=== PATIENT | female | born 1965 ===

== ENCOUNTER 2021-03-06 06:07 | Day surgery (SDC) | payer OTHER ==
[~2021-03-06 06:07] MED LIST: COZAAR100 MG PO; CRESTOR40 MG PO; HUMALOG100 UNIT/1; LANTUS; SYNTHROID100 MCG PO
== END 2021-03-06 14:53 | disposition home or self-care (01) ==
LOC: CIR.AMB 06:07
PROVIDERS: ATTEND Obstetrics & Gynecology
DX: N84.0 Polyp of corpus uteri (principal); D25.0 Submucous leiomyoma of uterus; Z20.822 Contact with and (suspected) exposure to COVID-19

== ENCOUNTER 2024-08-03 06:22 | Day surgery (SDC) | payer OTHER ==
[~2024-08-03 06:22] MED LIST changes: +TOUJEO SOL300 UNIT/1; +TRULICITY3 MG/0.5 M
[2024-08-03] MEDS ORDERED: POVIDONE-IODINE 118 ML BOTT TOP ONE (08:30)
[2024-08-03] MEDS ORDERED: CEFAZOLIN SODIUM 1,000 MG VIAL IV SCH (08:30)
== END 2024-08-03 12:35 | disposition home or self-care (01) ==
LOC: CIR.AMB 06:22
PROVIDERS: ATTEND Obstetrics & Gynecology
DX: N85.02 Endometrial intraepithelial neoplasia [EIN] (principal)

== ENCOUNTER 2024-09-05 08:55 | Inpatient (IN) | payer OTHER ==
[~2024-09-05] VITALS: Ht 157.5 cm; Wt 94.8 kg
[2024-09-05] MEDS ORDERED: CRESTOR40 MG (09:33)
[2024-09-05] MEDS ORDERED: TOUJEO (09:33)
[2024-09-05 10:21] LABS: RH POSITIVE
[2024-09-14] MEDS ORDERED: TOUJEO MAX300 UNIT/1 (08:02)
[2024-09-14] MEDS ORDERED: TRULICITY4.5 MG/0.5 (08:03)
[2024-09-14] MEDS ORDERED: CHLORTHALIDONE25 MG (08:03)
[2024-09-14] MEDS ORDERED: POVIDONE-IODINE 118 ML BOTT TOP ONE (09:15)
[2024-09-14] MEDS ORDERED: BUPIVACAINE HCL 30 ML VIAL IJ ONE (09:15)
[2024-09-14] MEDS ORDERED: CEFAZOLIN SODIUM 1,000 MG VIAL IV ONE (09:15)
[2024-09-14] MEDS ORDERED: SURGIFLO APPLICATOR 1 EACH APPL TOP ONE (10:15)
[2024-09-14] MEDS ORDERED: HEMOSTATIC MATRIX WITH THROMBIN KIT TOP ONE (10:15)
[2024-09-14] MEDS ORDERED: MORPHINE SULFATE 4 MG/ML VIAL IV ONE (11:55)
[2024-09-14] MEDS ORDERED: RINGERS SOLUTION,LACTATED 1,000 ML IV SCH (12:00)
[2024-09-14] MEDS ORDERED: MORPHINE SULFATE 2 MG/ML CARTRIDGE IV PRN (12:00)
[2024-09-14] MEDS ORDERED: ONDANSETRON HCL 2 MG/ML VIAL IV PRN (12:00)
[2024-09-14] MEDS ORDERED: INSULIN LISPRO 1,000 UNIT/10 ML UNITS SUBCUTANEO PRN ×2 (12:15→14:00)
[2024-09-14] MEDS ORDERED: DEXTROSE 50 % IN WATER 0.5 G/ML DISP.SYRIN IV PRN ×2 (12:15→14:00)
[2024-09-14] MEDS ORDERED: ENALAPRILAT DIHYDRATE 1.25 MG/ML VIAL IV PRN (14:00)
[2024-09-14] MEDS ORDERED: CEFOXITIN SODIUM 2,000 MG VIAL IV SCH (17:00)
[2024-09-14] MEDS ORDERED: ACETAMINOPHEN WITH CODEINE 1 UDTAB TABLET PO PRN (17:00)
[2024-09-14 17:50] LABS: HEMATOCRIT 42.6 % (36.0-45.00); HEMOGLOBIN 14.3 g/dL (12.0-15.00); MEAN CELL VOLUME 92.9 fL (80.00-100.00); MEAN CORPUSCULAR HEMOGLOBIN 31.2 pg (27.00-32.0); MEAN CORPUSCULAR HGB CONC 33.5 g/dl (32.0-36.0); PLATELET COUNT 300 K/uL (150-450); RED BLOOD COUNT 4.58 M/uL (4.00-6.00); RED CELL DISTRIBUTION WIDTH 13.1 % (11.5-14.5)
[2024-09-14] MEDS ORDERED: ENOXAPARIN SODIUM 40 MG/0.4 ML SYRINGE SUBCUTANEO SCH (18:00)
[2024-09-14 19:09] VITALS: BP 150/75; O2SAT 98
[2024-09-15 00:13] VITALS: BP 159/72; O2SAT 100
[2024-09-15] MEDS ORDERED: LEVOTHYROXINE SODIUM 100 MCG TABLET PO SCH ×2 (06:00)
[2024-09-15 06:32] LABS: HEMOGLOBIN 14.1 g/dL (12.0-15.00); MEAN CELL VOLUME 93.3 fL (80.00-100.00); MEAN CORPUSCULAR HEMOGLOBIN 32.1 pg (27.00-32.0); MEAN CORPUSCULAR HGB CONC 34.4 g/dl (32.0-36.0); PLATELET COUNT 275 K/uL (150-450)
[2024-09-15] MEDS ORDERED: LOSARTAN POTASSIUM 100 MG TABLET PO SCH (09:00)
[2024-09-15 09:09] LABS: URINE APPEARANCE Clear; URINE BILIRRUBIN Negative (NEGATIVE); URINE BLOOD Negative; URINE COLOR Yellow; URINE GLUCOSE Negative (NEGATIVE); URINE KETONE Negative (NEGATIVE); URINE LEUKOCYTE Negative; URINE NITRATE Negative; URINE PROTEIN Negative (NEGATIVE); URINE UROBILINOGEN 0.2 E.U./dl
[2024-09-15 09:14] LABS: URINE BACTERIA 8.5 uL (0.0-1933); URINE EPITHELIAL CELLS 1.5 uL (0.0-38.8)
[2024-09-15 09:22] LABS: URINE RBC 0.5 uL (0.0-20.8); URINE WBC 0.7 uL (0.0-23.2)
[2024-09-15] MEDS ORDERED: DOCUSATE SODIUM 100MG CAP PO NR (09:45)
[2024-09-15 09:54] VITALS: BP 139/76; O2SAT 99
[2024-09-15] MEDS ORDERED: INSULIN GLARGINE,HUM.REC.ANLOG 1,000 UNITS/10 ML UNITS SUBCUTANEO STA (10:39)
[2024-09-15] MEDS ORDERED: INSULIN LISPRO 1,000 UNIT/10 ML UNITS SUBCUTANEO SCH (11:00)
[2024-09-15 16:23] VITALS: BP 132/77; O2SAT 95
[2024-09-15] MEDS ORDERED: PATIENTS OWN MEDICATION (MEDICAMENTO EN PISO) PO SCH (17:00)
[2024-09-15] MEDS ORDERED: DOCUSATE SODIUM 100MG CAP PO SCH (17:00)
[2024-09-16 00:50] VITALS: BP 131/76; O2SAT 95
[2024-09-16 08:00] VITALS: BP 120/69; O2SAT 97
[2024-09-16] MEDS ORDERED: COLACE100 MG PO (13:38)
[2024-09-16] MEDS ORDERED: AMOX-CLAV 875-1 EACH PO (13:38)
[2024-09-16] MEDS ORDERED: TRAM1TAB98 PO (13:39)
== END 2024-09-16 16:59 | disposition home or self-care (01) | DRG 743 ==
LOC: ADM 12:30 → O/R 09-14 06:15 → SURH 09-14 09:30 → EDSTATUS 09-14 12:30 → SURH 09-14 12:30 → CIR.AMB 09-14 12:30 → OB/GYN 09-14 13:24 → O/R 09-14 15:06 → SURG 09-14 17:55
PROVIDERS: ADMIT Obstetrics & Gynecology; ATTEND Obstetrics & Gynecology
PROC: 0DNW4ZZ Release Peritoneum, Percutaneous Endoscopic Approach (ICD-10-PCS; 2024-09-14)
PROC: 0USG7ZZ Reposition Vagina, Via Natural or Artificial Opening (ICD-10-PCS; 2024-09-14)
PROC: 0UT74ZZ Resection of Bilateral Fallopian Tubes, Percutaneous Endoscopic Approach (ICD-10-PCS; 2024-09-14)
PROC: 4A12X4Z Monitoring of Cardiac Electrical Activity, External Approach (ICD-10-PCS; 2024-09-14)
PROC: 0UT94ZZ Resection of Uterus, Percutaneous Endoscopic Approach (ICD-10-PCS; principal; 2024-09-14 09:30)
DX: D25.2 Subserosal leiomyoma of uterus (principal); N84.0 Polyp of corpus uteri; Z20.822 Contact with and (suspected) exposure to COVID-19; N73.6 Female pelvic peritoneal adhesions (postinfective); R93.5 Abnormal findings on diagnostic imaging of other abdominal regions, including retroperitoneum